=== PATIENT | female | born 1955 | race Caucasian/White ===

== ENCOUNTER 2023-10-07 04:10 | Day surgery (SDC) | payer OTHER, BC ==
[2023-09-26 14:06] VITALS: BMI 32.3
[2023-10-07] MEDS ORDERED: MIDAZOLAM HCL 2 MG/2 ML SINGLE DOSE VIAL ONE (07:15)
[2023-10-07] MEDS ORDERED: oxyCODONE HCL 5 MG TABLET PO PRN ×2 (07:31→07:47)
[2023-10-07] MEDS ORDERED: ACETAMINOPHEN 325 MG TABLET (FP) PO PRN (07:31)
[2023-10-07] MEDS ORDERED: LACTATED RINGERS SOLUTION 1,000 ML IV SCH (07:45)
[2023-10-07] MEDS ORDERED: PROPOFOL 20 ML ONE (07:46)
[2023-10-07] MEDS ORDERED: ONDANSETRON 4 MG/2 ML VIAL IVPUSH PRN (07:47)
[2023-10-07] MEDS ORDERED: IBUPROFEN 800 MG/8 ML IJ IVPB PRN (07:47)
[2023-10-07] MEDS ORDERED: IBUPROFEN 600 MG TABLET (FP) PO PRN (07:47)
[2023-10-07] MEDS ORDERED: LIDOCAINE HCL/PF 2% SDV 5ML VIAL ONE (07:49)
[2023-10-07] MEDS ORDERED: ELECTROLYTE-148 SOLN 1,000 ML IV SCH (08:00)
[2023-10-07] MEDS: ONDANSETRON 4 MG/2 ML VIAL IVPUSH PRN (09:43)
[2023-10-07] MEDS ORDERED: ONDANSETRON 4 MG/2 ML VIAL ONE (09:43)
[2023-10-07 14:07] VITALS: RESP 18
[2023-10-07 14:11] VITALS: BP 126/58; PULSE 64; TEMP 97.8
== END 2023-10-07 12:38 | disposition home or self-care (01) ==
LOC: JASU-SURG 04:10
PROVIDERS: ATTEND Obstetrics & Gynecology
PROC: 0UDB8ZX Extraction of Endometrium, Via Natural or Artificial Opening Endoscopic, Diagnostic (ICD-10-PCS; principal; 2023-10-07 07:30)
DX: N85.00 Endometrial hyperplasia, unspecified (principal)
CPT/HCPCS: 82962; 88305-TC; 94760